=== PATIENT | male | born 1995 | race Caucasian/White ===

== ENCOUNTER 2019-04-09 00:07 | Emergency (ER) | payer OTHER ==
[~2019-04-09] VITALS: Ht 182.9 cm; Wt 81.6 kg
[2019-04-09 00:30] VITALS: BP 142/89
== END 2019-04-09 01:09 | disposition home or self-care (01) ==
LOC: ER 00:11
DX: S81.852A Open bite, left lower leg, initial encounter (principal); Z90.89 Acquired absence of other organs; W54.0XXA Bitten by dog, initial encounter; Y93.9 Activity, unspecified; Y92.89 Other specified places as the place of occurrence of the external cause; Y99.8 Other external cause status